=== PATIENT | female | born 1955 | race American Indian/Alaskan Native ===

== ENCOUNTER 2021-01-29 | Inpatient (IN) | payer OTHER | END 2021-01-31 16:08 | disposition home or self-care (01) | DRG 291 | PROVIDERS: ADMIT Internal Medicine Geriatric Medicine | CPT/HCPCS: 36415; 71046; 71275; 78452; 80053; 80061; 83735; 83880; 84132; 84484; 85025; 85379; 85610; 85730; 93005; 93017; 93306; 96372; G0378; A9270-GY; A9502; J1650; J1940; J2785; Q9967 ==